=== PATIENT | male | born 1990 | race Caucasian/White ===

== ENCOUNTER 2024-10-18 04:04 | Day surgery (SDC) | payer OTHER ==
[2024-10-18] VITALS (269 sets, daily range): BP systolic 28–145; BP diastolic 13–94
[~2024-10-18] VITALS: Ht 180.3 cm; Wt 94.3 kg
--- NOTE | 2024-10-18 07:00 | NUR ---
Arrival & Pre-treatment Patient arrived to the [facility]R suite, identification and demographics confirmed. Patient to room 8, AAO, ambulatory, vitals obtained, ID/allergy/fall bands placed, changed into hospital gown, CHRIS hose, and non-slip socks. Procedure and timeline explained for treatment and discharge. All questions answered and the patient presents no concerns at this time.
[2024-10-18] MEDS ORDERED: PANTOPRAZOLE SODIUM Sesquihydr 40 MG/TAB PO PRN (07:30)
[2024-10-18] MEDS ORDERED: ALBUTEROL SULFATE 2.5 MG VIAL IN PRN (07:30)
[2024-10-18] MEDS ORDERED: FAMOTIDINE 20 MG/TAB PO PRN (07:30)
[2024-10-18] MEDS ORDERED: LACTATED RINGER'S 1,000 ML IV PRN ×3 (07:30→19:00)
[2024-10-18] MEDS ORDERED: CYANOCOBALAMIN 500 MCG/TAB ( B12) PO PRN (07:30)
[2024-10-18] MEDS ORDERED: diazePAM 5 MG/TAB PO PRN ×2 (07:30→08:30)
[2024-10-18] MEDS ORDERED: SCOPOLAMINE 1.5 MG DIS TD PRN (07:30)
[2024-10-18] MEDS ORDERED: cloNIDine HCL 0.1 MG/TAB PO PRN (07:30)
--- NOTE | 2024-10-18 07:40 | NUR ---
Dr. Brandon telephoned with patient intake information including usage, dose, last dose/time taken and initial vital signs. Patient history and allergies reviewed with MD. Orders received for 10 + 5 PRN mg PO Valium and 0.3 mg PO Clonidine now. Will reassess per protocol in 1.5 hours and update MD with assessment and vitals. Patient medicated per MD orders. In addition to Clonidine and Valium, patient received 1000 mcg B12 PO, 20 mg Pepcid PO, and Scopolamine TD patch. Medication indication and education provided prior to administration,. SN REVIEWED PERSONNAL BELONGINGS WITH PATIENT. NO CONTRABAND PRESENT. PATIENT WAS A WALLET AND CELLPHONE THAT ARE PLACED IN ANR LOCKER RED2.
[2024-10-18] MEDS ORDERED: SODIUM CHLORIDE 0.9% 1,000 ML IV ONE (07:43)
[2024-10-18] MEDS ORDERED: ASCORBIC ACID 4,000 MG in SODIUM CHLORIDE 0.9% 1,000 ML IV SCH (08:00)
[2024-10-18] MEDS ORDERED: ONDANSETRON HCl 4 MG/2 ML SDV IV PRN ×3 (08:50→19:00)
[2024-10-18] MEDS ORDERED: PROPOFOL 10 MG/ML 100ML VIAL IV PRN (08:50)
[2024-10-18] MEDS ORDERED: DiphenhydrAMINE HCL 50 MG/ML SDV IV PRN (08:50)
[2024-10-18] MEDS ORDERED: LIDOCAINE HCL 1% (10MG/ML) 100 MG/10 ML MDV VT PRN ×2 (08:50)
[2024-10-18] MEDS ORDERED: PROPOFOL 100 ML IV PRN (08:50)
[2024-10-18] MEDS ORDERED: STERILE WATER FOR IRRIGATION 1,000 ML BTL IR PRN (08:50)
[2024-10-18] MEDS ORDERED: OCTREOTIDE ACETATE 100 MCG/VIAL SDV SC PRN (08:50)
[2024-10-18] MEDS ORDERED: ROCURONIUM BROMIDE 10 MG/ML 5ML VIAL IV PRN (08:50)
[2024-10-18] MEDS ORDERED: cloNIDine HYDROCHLORIDE 100 MCG/ML 10 ML INJ IV PRN (08:50)
[2024-10-18] MEDS ORDERED: SUCCINYLCHOLINE CHLORIDE 20 MG/ML 10ML VIAL IV PRN (08:50)
[2024-10-18] MEDS ORDERED: MAGNESIUM SULFATE HEPTAHYDRATE 100 ML IV PRN (08:50)
[2024-10-18] MEDS ORDERED: THIAMINE HCL 100 MG/ML 2ML VIAL IV PRN (08:50)
[2024-10-18] MEDS ORDERED: cloNIDine HCL 0.1 MG/TAB VT PRN (08:50)
[2024-10-18] MEDS ORDERED: MIDAZOLAM HCL 2 MG/2 ML VIAL IV PRN (08:50)
[2024-10-18] MEDS ORDERED: NALTREXONE HCL 50 MG/TAB VT PRN (08:50)
[2024-10-18] MEDS ORDERED: LIDOCAINE HCL 1% (10MG/ML) 100 MG/10 ML MDV IV PRN (08:50)
[2024-10-18] MEDS ORDERED: diazePAM 5 MG/TAB VT PRN (08:50)
[2024-10-18 08:57] LABS: BASO% 0.4 % (0-3); EOS% 2.6 % (0-8); HEMATOCRIT 41.8 % (39.0-50.0); HEMOGLOBIN 13.8 g/dl (14.0-18.0); IMMATURE GRANULOCYTES 0.1 % (0.0-5.0); LYMPH% 25.6 % (15-41); MEAN CELL VOLUME 82.9 fL CALC (80.0-100.0); MEAN CORPUSCULAR HGB 27.4 pG CALC (26.0-32.0); MONO% 8.5 % (2-13); NEUT# 4.37 thou/uL (1.82-7.42); NEUT% 62.8 % (42-76); RED BLOOD COUNT 5.04 mill/uL (4.70-6.10); RED CELL DISTRI WIDTH 12.5 % (11.5-15.5)
[2024-10-18 09:10] LABS: ALBUMIN 4.5 g/dL (3.2-5.0); BILIRUBIN, TOTAL 0.6 mg/dL (0.2-1.3); POTASSIUM 4.9 mmol/l (3.5-5.1); TOTAL PROTEIN 7.2 g/dL (6.3-8.2)
--- NOTE | 2024-10-18 09:35 | NUR ---
DR. WAY AT THE BEDSIDE DISCUSSING PROCEDURE. QUESTIONS ASKED AND ANSWERED.
[2024-10-18] MEDS ORDERED: ADDERALL30 MG PO (09:43)
[2024-10-18] MEDS ORDERED: LEXAPRO20 MG PO (09:44)
[2024-10-18] MEDS ORDERED: XANAX0.5 MG PO (09:44)
--- NOTE | 2024-10-18 10:35 | NUR ---
Induction Note Patient to [facility]R procedure room. Time out performed at 1035. Patient placed on monitors, Santi hugger, bilateral wrist restraints applied for ET tube protection. Versed 5mg given IV push at 1100 Tourniquet applied to RIGHT arm Lidocaine 100mg given at 1101 IV push followed by Rocoronium 10mg at 1102 IV push and held for 90 seconds. Propofol bolus of 120mg given at 1104 IV push. Succinylcholine 80mg given IV push at 1105. Smooth intubation with 7.5 ETT. Positive CO2. Positive Auscultation for air exchange. Patient placed on ventilator for spontaneous ventilation. Placed on Propofol IV drip at 1106. OG inserted. Positive air on auscultation. Positive gastric content. Stomach washed at this time.
[2024-10-18] MEDS ORDERED: clonazePAM 1 MG/TAB PO PRN (11:25)
--- NOTE | 2024-10-18 11:50 | NUR ---
OG close note Stomach washed at this time. Naltrexone 50 mg with Clonidine 0.1 mg via OG tube. OG will be clamped for 45 minutes.
--- NOTE | 2024-10-18 12:15 | NUR ---
OG open note OG open at this time. Gastric content draining into drainage bag. OG to drain for 45 minutes. Propofol will be titrated down based on patient.
--- NOTE | 2024-10-18 13:00 | NUR ---
OG close note Stomach washed at this time. Naltrexone 50 mg with Clonidine 0.3 mg via OG tube. OG will be clamped for 45 minutes. PRECEDEX GTT INITIATED AT THIS TIME.
--- NOTE | 2024-10-18 14:30 | NUR ---
OG close note Stomach washed at this time. Naltrexone 50 mg with Clonidine 0.2 mg via OG tube. OG will be clamped for 45 minutes.
--- NOTE | 2024-10-18 16:00 | NUR ---
WAITING/ NO CLOSE SPOKE WITH DR. WAY AND HE STATED PATIENT NEEDS MORE TIME. NO ADDITIONAL ORDERS GIVEN AT THIS TIME.
[2024-10-18] MEDS ORDERED: NALTREXONE50 MG PO (16:20)
[2024-10-18] MEDS ORDERED: CLONIDINE0.1 MG PO (16:20)
[2024-10-18] MEDS ORDERED: KLONOPIN2 MG PO (16:21)
--- NOTE | 2024-10-18 17:00 | NUR ---
OG close note Stomach washed at this time. Naltrexone 0 mg with Clonidine 0.2 mg via OG tube. OG will be clamped for 30 minutes.
--- NOTE | 2024-10-18 17:30 | NUR ---
OG open note OG open at this time. Gastric content draining into drainage bag. OG to drain . Propofol will be titrated down based on patient.
--- NOTE | 2024-10-18 17:35 | NUR ---
Extubation note Closing medications given Benadryl 50mg IV push, Decadron 10mg IV push,Magnesium 4 grams IV, Zofran 8mg IV push, Octreotide 100mcg SC. Stomach washed out prior to extubation. Suctioned gastric content. OG removed. Patient extubated. Propofol Discontinued. Wrist restraints removed. Santi hugger Removed. See ANR Moderate sedate recovery record for further notes and assessment.
--- NOTE | 2024-10-18 18:36 | NUR ---
TRANSER NOTE Patient transferred to medical-surgical unit. Report given to receiving nurse at bedside. Treatment, medications, I/O, IV access reviewed with RN. All questions answered. IVF to continue at 100 ml/hr, NC @ 2L, no adventitious breath sounds. Safety precautions in place, bed locked and in lowest position, call light in reach. PATIENTS SOUSE CALLED UPON HIS REQUEST BY [facility]UNROE RN TO UPDATE HER ON PROCEDURE.
[2024-10-18] MEDS ORDERED: LORazepam 2 MG/ML IV PRN ×2 (19:00)
[2024-10-18] MEDS ORDERED: ACETAMINOPHEN 1,000 MG/100 ML VIAL IV PRN (19:00)
[2024-10-18] MEDS ORDERED: PROMETHAZINE HCL 12.5 MG in SODIUM CHLORIDE 0.9% 50 ML IV PRN (19:00)
[2024-10-18] MEDS ORDERED: ACETAMINOPHEN 500 MG TAB PO PRN (19:00)
[2024-10-18] MEDS ORDERED: HALOPERIDOL LACTATE 5 MG/ML SDV IV PRN (19:00)
[2024-10-18] MEDS ORDERED: PROMETHAZINE HCL 25 MG in SODIUM CHLORIDE 0.9% 50 ML IV PRN (19:00)
[2024-10-18] MEDS ORDERED: KETOROLAC TROMETHAMINE 30 MG/ML SDV IV PRN (19:00)
--- NOTE | 2024-10-18 19:44 | NUR ---
PT SHOWING SIGNS OF AGITATION AND DISORIENTATION. FLAILING ARMS AND BEGINNING TO MOAN AND YELL OUT BUT UNABLE TO GIVE ANY VERBAL RESPONSE. ADMINSITERED MEDICATION PER EMAR FOR AGITATION. PT HAD INC EPISODE, DIE HOLDER AND STAFFED CLEANED AND CHANGED PT, PT SLIGHTLY COMBATIVE DURING CARE. REPOSITIONED PT IN BED ON RT SIDE, NASAL CANNULA IN PLACE. SUCTION USED TO CLEAR ORAL SECRETIONS. IVF RUNNING PER EMAR. VSS. NO S/SOF DISTRESS. BED ALARM ON AND SAFETY PRECAUTIONS IN PLACE. SITTER AT DOORWAY.
[2024-10-18] MEDS ORDERED: PATIENT' OWN MED CONTROLLED 1 EA DOSE IV PRN (21:00)
[2024-10-18] MEDS ORDERED: cloNIDine HCL 0.1 MG/TAB PO SCH (23:00)
--- NOTE | 2024-10-18 23:31 | NUR ---
PT IS PRESENTING A LITTLE MORE ALERT AND AWAKE. RESPONDS AND FOLLOW COMMANDS WELL WHEN USING HIS NAME. 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 GAIT WAS UNSTEADY AND WEAK. PT VOIDED W/O DIFFICULTY AND ASSISTED BACK INTO BED. PT DENIES ANY N/V/P. ON RM AIR NOW AT THIS TIME, O2 SATURATION WNL. ADMINISTERED SCHEDULED MEDS PER EMAR. PT TOLERATED WELL. VSS. NO S.S OF DISTRESS. BED ALARM ON AND SAFETY PRECAUTIONS IN PLACE.
[2024-10-19 03:44] VITALS: BP 113/41
[2024-10-19] MEDS ORDERED: clonazePAM 1 MG/TAB PO PRN ×2 (04:00→08:00)
[2024-10-19] MEDS ORDERED: cloNIDine HCL 0.1 MG/TAB PO PRN (04:00)
[2024-10-19] MEDS ORDERED: NALTREXONE HCL 50 MG/TAB PO SCH (04:00)
--- NOTE | 2024-10-19 04:49 | NUR ---
ADMINISTERED SCHEDULED MEDS PER EMAR. PT TOLERATED WELL. PT IS A/O TO SELF AND WILL FOLLOW COMMANDS WHEN REDIRECTED BUT STILL PRESENTS DROWSY. PT DENIES ANY N/V/P. VSS. RM AIR. NO S/S OF DISTRESS. BED ALARM ON AND SAFETY PRECAUTIONS IN PLACE. SITTER AT DOORWAY.
[2024-10-19 05:49] LABS: BASO% 0.1 % (0-3); HEMATOCRIT 39.8 % (39.0-50.0); HEMOGLOBIN 13.3 g/dl (14.0-18.0); IMMATURE GRANULOCYTES 0.3 % (0.0-5.0); LYMPH% 14.5 % (15-41); MEAN CELL VOLUME 83.3 fL CALC (80.0-100.0); MEAN CORPUSCULAR HGB 27.8 pG CALC (26.0-32.0); MEAN CORPUSCULAR HGB CONC 33.4 g/dL CAL (32.0-36.0); MONO% 4.9 % (2-13); NEUT# 5.9 thou/uL (1.82-7.42); NEUT% 80.2 % (42-76); RED BLOOD COUNT 4.78 mill/uL (4.70-6.10); RED CELL DISTRI WIDTH 12.3 % (11.5-15.5)
[2024-10-19 06:09] LABS: ALBUMIN 3.7 g/dL (3.2-5.0); BILIRUBIN, TOTAL 0.7 mg/dL (0.2-1.3); CREATININE 0.9 mg/dL (0.7-1.3); MAGNESIUM 2.3 mg/dL (1.6-2.3); POTASSIUM 4.1 mmol/l (3.5-5.1); TOTAL PROTEIN 6.2 g/dL (6.3-8.2)
[2024-10-19 07:25] VITALS: BP 113/55
[2024-10-19] MEDS ORDERED: cloNIDine HCL 0.1 MG/TAB PO SCH (08:00)
[2024-10-19] MEDS ORDERED: ACETAMINOPHEN 325 MG/TAB PO SCH (08:00)
[2024-10-19] MEDS ORDERED: PANTOPRAZOLE SODIUM Sesquihydr 40 MG/TAB PO SCH (08:00)
--- NOTE | 2024-10-19 08:50 | NUR ---
PATIENT IS A/O X2; ROOM AIR; AMBULATING IN ROOM; TOLERATED HIS MEDICATIONS AND BREAKFAST WITH NO ISSUES; DENEID ANY PAIN; DENEID ANY N/D/V; PATIENT STATED " MY IS RIGHT THERE POINTING TO DOOR" IMFORMED PATIENT THAT HIS IS THE HOTEL WAITING ON US TO UPDATE HER ABOUT HIM, INFORMED HIM HE IS JUST A LITTEL GROGGY DUE TO THE PROCEDURE, ENCOURAGED PATIENT TO REST SOME MORE; IV SITE CLEAN AND AND ITACT AND WORKING WITH NO ISSUES; CALL LIGHT WITHIN REACH; BED IN LOWEST POSTION;SAFTEY MEASURES IN PLACE; BED ALRM ACTIAVTED
[2024-10-19] MEDS ORDERED: MAGNESIUM OXIDE 400 MG/TAB PO PRN (09:00)
[2024-10-19] MEDS ORDERED: ACETAMINOPHEN 500 MG TAB PO PRN (09:00)
[2024-10-19] MEDS ORDERED: Cholecalciferol 2,000 UNIT/TAB PO PRN (09:00)
--- NOTE | 2024-10-19 11:10 | NUR ---
PATIENT AMBULATED DOWN HALLWAY WITH NO ISSUES WITH WRITTER
--- NOTE | 2024-10-19 12:40 | NUR ---
PATIENT AWAKE IN BED; ROOM AIR; BREATHING UNLABORED; DENIED ANY PAIN; DENIED ANY N/D/V AT THIS TIME; NO S.S OF DISTRESS; PATIENT SITTING SEMI JUAN IN BED ON HIS PHONE; IV SITE CLEAN AND INTACT SALINE LOCKED AT THIS TIME; PERSONAL CLOTHES AND CELLPHONE WAS RETURNED TO PATIENT; OTHER PERSONAL ITEMS IN ANR LOCKER; NO COMPLAINTS; TOLERATED HIS LUNCH WITH NO ISSUES; CALL LIGHT WITHIN REACH, VERBALIZED UNDERSTANDING ON HOW TO USE, BED IN LOWEST POSTION;SAFTEY MEASURES IN PLACE
--- NOTE | 2024-10-19 15:38 | NUR ---
IV site discontinued, cath intact. No edema , no redness, voices no discomfort. Discharge instructions given. Patient verbalizes understanding of same. Discharged in stable condition via Ambulatory to Home with family. All belongings sent with pt. approved per dr weller, personal item return by negrita todd
== END 2024-10-19 15:34 | disposition home or self-care (01) | DRG 897 ==
LOC: MS2 04:04 → ANR 04:04 → MS2 07:37 → ANR 08:00 → MS2 17:52 → ANR 10-19 15:34
PROVIDERS: ATTEND Anesthesiology
DX: F11.20 Opioid dependence, uncomplicated (principal)
CPT/HCPCS: J1100; J1200; J2060; J2354; J2405; J2704; J3411; J3475; J3490